=== PATIENT | female | born 1965 | race Caucasian/White ===

== ENCOUNTER → 2017-02-10 | Outpatient (CLI) | payer MEDICAID, BC ==
[2017-02-10 08:29] LABS: Basophils % (A) 1 %; CH 32.5; CHCM 35.5; Eosinophils # (A) 0.1 k/uL (0-0.7); Eosinophils % (A) 2 %; HDW 2.59; HGB 14.6 gm/dL (11.4-16.0); Luc # (Auto) 0.14; Luc % (Auto) 3; Lymphocytes # (A) 1.6 k/uL (1.0-4.8); Lymphocytes % (A) 33 %; MCH 31.8 pg (25.0-35.0); MCHC 34.7 g/dL (31.0-37.0); MCV 91.8 fL (80.0-100.0); Mean Platelet Volume 7.4; Monocytes # (A) 0.4 k/uL (0-1.0); Monocytes % (A) 8 %; Neutrophils # (A) 2.6 k/uL (1.3-7.7); Neutrophils % (A) 53 %; RBC 4.57 m/uL (3.80-5.40); WBC (Perox) 5.18
== END | disposition home or self-care (01) ==
LOC: LABWHC1 06:40
PROVIDERS: ATTEND Nurse Practitioner Family
DX: Z01.419 Encounter for gynecological examination (general) (routine) without abnormal findings (principal); Z12.72 Encounter for screening for malignant neoplasm of vagina; Z13.228 Encounter for screening for other metabolic disorders; Z13.29 Encounter for screening for other suspected endocrine disorder; Z13.0 Encounter for screening for diseases of the blood and blood-forming organs and certain disorders involving the immune mechanism; Z13.220 Encounter for screening for lipoid disorders; Z13.21 Encounter for screening for nutritional disorder
CPT/HCPCS: 36415; 85025

== ENCOUNTER → 2017-02-18 | Outpatient (CLI) | payer MEDICAID, BC ==
--- NOTE | 2017-02-22 09:07 | MM ---
Reason for exam: screening (asymptomatic). Last mammogram was performed 1 year and 1 month ago. History: Patient is nulliparous. Family history of breast cancer in grandmother at age 60. Took hormonal contraceptives for 15 years beginning at age 27. Physical Findings: A clinical breast exam by your physician is recommended on an annual basis and results should be correlated with mammographic findings. MG 3D Screening Mammo W/Cad Bilateral CC and MLO view(s) were taken. Prior study comparison: January 16, 2016, bilateral MG 3d screening mammo w/cad. June 26, 2014, bilateral MG diagnostic mammo w CAD GHISLAINE. December 13, 2012, bilateral digital screening mammo w/CAD. The breast tissue is heterogeneously dense. This may lower the sensitivity of mammography. No significant changes when compared with prior studies. ASSESSMENT: Negative, BI-RAD 1 RECOMMENDATION: Routine screening mammogram of both breasts in 1 year.
== END | disposition home or self-care (01) ==
LOC: RADMAMWWP 13:58
PROVIDERS: ATTEND Family Medicine
DX: Z12.31 Encounter for screening mammogram for malignant neoplasm of breast (principal)
CPT/HCPCS: 77063; G0202

== ENCOUNTER → 2017-05-24 | Outpatient (CLI) | payer MEDICAID, BC ==
--- NOTE | 2017-05-24 11:01 | ECHOS ---
STRESS ECHOCARDIOGRAM DATE OF SERVICE: 05/24/2017 INDICATIONS: Chest pain. MEDICATIONS: BASELINE HEART RATE: 72 BASELINE BLOOD PRESSURE: 129/81 MAXIMUM HEART RATE: 166 MAXIMUM BLOOD PRESSURE: 192/74 85% MPHR: 145 100% MPHR: 170 METS: 11 MAXIMUM STAGE REACHED: IV TOTAL EXERCISE TIME: 10 minutes CLINICAL INFORMATION: Baseline EKG shows sinus rhythm, normal axis, normal intervals, with poor R-wave progression. Patient exercised on Daron protocol for a total of 10 minutes achieving 11 METs, 97% of predicted maximal heart rate without chest pain. At peak exercise, there was [address]-segment depression noted in the inferolateral leads. Baseline echo shows normal left ventricular size, wall motion and systolic function. Post exercise, the peak images are technically suboptimal, but there are no exercise- induced wall motion abnormalities. CONCLUSIONS: 1. Excellent exercise tolerance. 2. Abnormal stress test by EKG criteria. 3. Negative stress echo. MMIRENEL / IJN: [id number] /
== END | disposition home or self-care (01) ==
LOC: RADNMMAIN 09:49
PROVIDERS: ATTEND Internal Medicine Interventional Cardiology
DX: R07.89 Other chest pain (principal)
CPT/HCPCS: 93017; 93350

== ENCOUNTER → 2018-09-29 | Outpatient (CLI) | payer MEDICAID, BC ==
--- NOTE | 2018-09-30 08:48 | MM ---
Reason for exam: screening (asymptomatic). Last mammogram was performed 1 year and 7 months ago. History: Patient is nulliparous. Family history of breast cancer in grandmother at age 60. Took hormonal contraceptives for 15 years beginning at age 27. Physical Findings: A clinical breast exam by your physician is recommended on an annual basis and results should be correlated with mammographic findings. MG 3D Screening Mammo W/Cad Bilateral CC and MLO view(s) were taken. Prior study comparison: February 18, 2017, bilateral MG 3d screening mammo w/cad. January 16, 2016, bilateral MG 3d screening mammo w/cad. The breast tissue is heterogeneously dense. This may lower the sensitivity of mammography. There is no discrete abnormality. No significant changes when compared with prior studies. ASSESSMENT: Negative, BI-RAD 1 RECOMMENDATION: Routine screening mammogram of both breasts in 1 year.
== END | disposition home or self-care (01) ==
LOC: RADMAMWWP 13:58
PROVIDERS: ATTEND Family Medicine
DX: Z12.31 Encounter for screening mammogram for malignant neoplasm of breast (principal)
CPT/HCPCS: 77063; 77067

== ENCOUNTER → 2019-03-29 | Outpatient (CLI) | payer MEDICAID, BC ==
--- NOTE | 2019-03-29 12:58 | XR ---
EXAMINATION TYPE: XR pelvis AP view DATE OF EXAM: 03/29/2019 CLINICAL HISTORY: Pelvic pain into both legs. TECHNIQUE: A single AP view of the pelvis is obtained. COMPARISON: None. FINDINGS: There is no acute fracture/dislocation evident in the pelvis. The hip and sacroiliac join ts appear symmetric and unremarkable. Scattered pelvic phleboliths are present bilaterally. IMPRESSION: As above.
--- NOTE | 2019-03-29 13:17 | XR ---
EXAMINATION TYPE: XR lumbosacral spine min 4V DATE OF EXAM: 03/29/2019 CLINICAL HISTORY: Shooting pain leg into both legs. TECHNIQUE: Frontal, lateral, and dynamic flexion and extension lateral images of the lumbar spine are obtained. COMPARISON: None FINDINGS: There are 5 lumbar type vertebral bodies identified. The lumbar spine shows slight dextro convex scoliotic curvature centered at L3-L4 level. Slight grade 1 anterolisthesis L3 on L4. Vertebra l body heights and disc space heights are fairly well-maintained. Dynamic images show no increased townsend bluxation or new disc space narrowing at any lumbar level. Overlying soft tissues are unremarkable. IMPRESSION: As above.
== END | disposition home or self-care (01) ==
LOC: RADXRMAIN 12:06
PROVIDERS: ATTEND Physician Assistant
DX: M25.551 Pain in right hip (principal); M41.86 Other forms of scoliosis, lumbar region; M43.16 Spondylolisthesis, lumbar region; M54.16 Radiculopathy, lumbar region
CPT/HCPCS: 72110; 72170

== ENCOUNTER → 2019-05-01 | Outpatient (CLI) | payer MEDICAID, BC ==
--- NOTE | 2019-05-01 15:45 | MR ---
EXAMINATION TYPE: MR cspine/lspine wo con DATE OF EXAM: 05/01/2019 COMPARISON: Plain film 03/29/2019 lumbosacral spine HISTORY: Headaches, low back pain into legs TECHNIQUE: Multiplanar, multisequence imaging of the lumbar and cervical spine is performed without I V contrast. FINDINGS: Lumbar spine MRI: Sagittal images of the lumbar spine show vertebral body heights and alignment to ap pear satisfactory, minimal anterolisthesis grade 1 L3-4. The intervertebral discs demonstrate loss of height and signal especially L5-S1, L3-4, increased signal posterior aspect of the disc at L5-S1 lik mariah represents an annular tear. The conus medullaris is normal in position and signal. The bone mar row signal intensity is within normal limits. Some cortical cysts are likely associated with the kidn eys Axial images show small posterior disc herniation L5-S1 possibly contacting the proximal S1 nerve jaime ts, anterior thecal sac, facet arthropathy changes at L3-4 with hypertrophy ligamentum flavum and no other significant abnormalities. There is no spinal canal stenosis, neural foraminal narrowing, or ev idence of nerve root compromise. IMPRESSION: Degenerative disc disease and facet arthropathy. Posterior disc herniation L5-S1. Cervical MRI: Cervical vertebral bodies show preserved height, alignment, and bone marrow signal. Thi s must disc height signal at C3-4, C4-5. Small posterior disc bulge present C2-3 without foraminal en croachment. C3-4 shows broad-based posterior disc bulge causing anterior mass effect on the thecal sa c which is mild. C4-5 also shows minimal posterior disc bulge causing slight anterior mass effect on the thecal sac. Some mild right-sided foraminal encroachment is present due to uncovertebral joint hy pertrophy. C5-C6 shows right-sided foraminal encroachment due to uncovertebral joint hypertrophy. Minimal agri business agent ior disc bulge causes slight anterior mass effect on the thecal sac. C6-7 shows foraminal encroachmen t bilaterally. Minimal posterior disc bulge causes slight anterior mass effect on the thecal sac. The re is no significant spinal stenosis present within the cervical spine. IMPRESSION: Degenerative disc disease and mild level foraminal encroachment.
== END | disposition home or self-care (01) ==
LOC: RADMRIMAIN 14:06
PROVIDERS: ATTEND Psychiatry & Neurology Neurology
DX: M51.27 Other intervertebral disc displacement, lumbosacral region (principal); M51.36 Other intervertebral disc degeneration, lumbar region; M46.96 Unspecified inflammatory spondylopathy, lumbar region; M50.30 Other cervical disc degeneration, unspecified cervical region
CPT/HCPCS: 72141; 72148

== ENCOUNTER → 2020-01-11 | Outpatient (CLI) | payer MEDICAID, BC ==
--- NOTE | 2020-01-11 11:51 | ECHOF ---
Referral Reason:R07.9 chest pain MEASUREMENTS -------- HEIGHT: 165.1 cm WEIGHT: 74.8 kg BP: 127/81 RVIDd: 2.4 cm (< 3.3) IVSd: 1.0 cm (0.6 - 1.1) LVIDd: 4.7 cm (3.9 - 5.3) LVPWd: 0.9 cm (0.6 - 1.1) IVSs: 1.2 cm LVIDs: 3.2 cm LVPWs: 1.3 cm LA Diam: 3.6 cm (2.7 - 3.8) LAESV Index (A-L): 22.84 ml/m Ao Diam: 2.6 cm (2.0 - 3.7) AV Cusp: 1.6 cm (1.5 - 2.6) MV EXCURSION: 19.740 mm (> 18.000) MV EF SLOPE: 129 mm/s (70 - 150) EPSS: 0.8 cm MV E Michele: 0.99 m/s MV DecT: 245 ms MV A Michele: 0.96 m/s MV E/A Ratio: 1.04 FINDINGS -------- Sinus rhythm. This was a technically adequate study. The left ventricular size is normal. Left ventricular wall thickness is normal. Overall left vent ricular systolic function is normal with, an EF between 60 - 65 %. The right ventricle is normal in size. Normal LA size by volume 22+/-6 ml/m2. The right atrium is normal in size. Interatrial and interventricular septum intact. The aortic valve is trileaflet and appears structurally normal. Mild mitral regurgitation is present. Trace tricuspid regurgitation present. There is no pulmonic regurgitation present. The aortic root size is normal. Normal inferior vena cava with normal inspiratory collapse consistent with estimated right atrial pre ssure of 5 mmHg. There is no pericardial effusion. CONCLUSIONS -------- 1. The left ventricular size is normal. 2. Left ventricular wall thickness is normal. 3. Overall left ventricular systolic function is normal with, an EF between 60 - 65 %. 4. Mild mitral regurgitation is present. 5. Trace tricuspid regurgitation present. 6. There is no pericardial effusion. PLUMBING HARDWARE ASSEMBLER: Gin Nuñez RD
--- NOTE | 2020-01-11 15:15 | ECHOS ---
Stress Test Results/Findings: Exam Performed: stress echo exercise with con Exam Date: 01/11/20 Reason for Exam: CHEST PAIN Height: 5 ft 5 in Weight: 74.843 kg Protocol: EXERCISE STRESS ECHO Stage: IV Duration of Exercise: 11:00 Resting Heart Rate: 67 Resting Blood Pressure: 127/81 Maximum Achieved Heart Rate: 159 Maximum Achieved Blood Pressure: 169/57 85% PMHR: 143 100% PMHR: 159 METS: 12.1 Technologist Comment: Stress Test Results/Findings: Patient underwent exercise stress echo with a Draon protocol treadmill stress test. Patient exercised into Stage 4 for a total of 11 minutes reaching a total of 12.1 METS. Patient's maximum heart rate was 159 which represented 100% % age-predicted maximum heart rate. Stress EKG portion: At baseline patient's EKG showed normal sinus rhythm, heart rate of 65, normal axis, nonspecific T-wave flattening in aVL. At peak exercise, EKG showed nonspecific 0.[address] depressions in inferior lateral leads. Stress echo portion: 2-D echocardiogram was performed in the parasternal long, personal short, apical 2 and apical four-chamber views at rest, peak exercise and in recovery. At baseline, echocardiogram showed left ventricular ejection fraction 60 % without wall motion abnormalities. With peak exercise, echocardiogram shows improvement in left ventricular ejection fraction, increase contractility, decrease in left ventricular dimension without wall motion abnormalities consistent with a normal response to exercise. Conclusions: 1. Normal EKG and echo response to exercise without evidence of inducible ischemia. 2. Excellent exercise capacity. [facility]
== END | disposition home or self-care (01) ==
LOC: RADECHMAIN 08:28
PROVIDERS: ATTEND Internal Medicine Interventional Cardiology
DX: I08.1 Rheumatic disorders of both mitral and tricuspid valves (principal)
CPT/HCPCS: 93306; 93351; Q9950

== ENCOUNTER → 2020-04-16 | Outpatient (CLI) | payer MEDICAID, BC ==
[2020-04-16 08:56] LABS: HCT 42.2 % (34.0-46.0); HGB 14.8 gm/dL (11.4-16.0); MCH 31.9 pg (25.0-35.0); MCHC 35.1 g/dL (31.0-37.0); MCV 90.9 fL (80.0-100.0); Mean Platelet Volume 7.4; Platelet Count 270 k/uL (150-450); RBC 4.65 m/uL (3.80-5.40); RDW 12.5 % (11.5-15.5); WBC 6.9 k/uL (3.8-10.6)
[2020-04-16 14:20] LABS: African American GFR (CKD) 114.6 (60.0-200.0); Albumin 4.5 g/dL (3.80-4.90); Albumin/Globulin Ratio 2.14 (1.60-3.17); Anion Gap 6.7 mmol/L (4.00-12.00); BUN/Creat Ratio 25.71 Ratio (12.00-20.00); Calcium 9.4 mg/dL (8.7-10.3); Carbon Dioxide 25.3 mmol/L (21.6-31.8); Chol/HDL Ratio 3.15; Globulin 2.1 g/dL (1.6-3.3); LDL Cholesterol,Calculated 108.8 mg/dL (0.0-131.0); Non-African American GFR(CKD) 98.9 (60.0-200.0); Potassium 4.4 mmol/L (3.5-5.5); Total Bilirubin 1.2 mg/dL (0.2-1.2); Total Protein 6.6 g/dL (6.2-8.2); VLDL Calculation 24.2 mg/dL (5.00-40.00)
[2020-04-16 14:29] LABS: T4, Free (Free Thyroxine) 1.2 ng/dL (0.80-1.80)
== END | disposition home or self-care (01) ==
LOC: LABWHC1 07:27
PROVIDERS: ATTEND Obstetrics & Gynecology
DX: Z13.29 Encounter for screening for other suspected endocrine disorder (principal); Z13.228 Encounter for screening for other metabolic disorders; Z13.220 Encounter for screening for lipoid disorders
CPT/HCPCS: 36415; 80053; 80061; 82306; 84439; 84443; 85027

== ENCOUNTER → 2020-06-26 | Outpatient (CLI) | payer MEDICAID, BC ==
--- NOTE | 2020-06-26 08:55 | BD ---
EXAMINATION TYPE: Axial Bone Density DATE OF EXAM: 06/26/2020 COMPARISON: NONE CLINICAL HISTORY: Height: 65 IN Weight: 165 LBS FRAX RISK QUESTIONS: Family History (Parent hip fracture): YES MOTHER RISK FACTORS HISTORY OF: Active: YES Diet low in dairy products/other sources of calcium: YES If Premenopausal, do you have irregular periods: YES LMP 03/2020 Take estrogen and/or progesterone medications: NOT NOW How long: TOOK CONTROL FOR 15 YEARS MEDICATIONS: Additional Medications: VIT D, MULTI VIT, INDERAL EXAM MEASUREMENTS: Bone mineral densitometry was performed using the [employer] System. Bone mineral density as measured about the Lumbar spine is: ----- L1-L4(G/cm2): 1.448 T Score Values are as follows: ----- L2: 1.4 ----- L3: 3.3 ----- L4: 2.3 ----- L1-L4: 2.2 Bone mineral density BASELINE Bone mineral density about the R hip (g/cm2): 1.050 Bone mineral density about the L hip (g/cm2): 1.119 T Score values are as follows: -----R Neck: 0.1 -----L Neck: 0.6 -----R Total: 1.0 -----L Total: 1.1 Bone mineral density BASELINE IMPRESSION: No evidence for osteoporosis or osteopenia. NOTE: T-SCORE=SD OF THE YOUNG ADULT MEAN.
--- NOTE | 2020-06-27 09:48 | MM ---
Reason for exam: screening (asymptomatic). Last mammogram was performed 1 year and 9 months ago. History: Patient is nulliparous. Family history of breast cancer in grandmother at age 60. Took hormonal contraceptives for 15 years beginning at age 27. Physical Findings: A clinical breast exam by your physician is recommended on an annual basis and results should be correlated with mammographic findings. MG 3D Screening Mammo W/Cad Bilateral CC and MLO view(s) were taken. Prior study comparison: September 29, 2018, bilateral MG 3d screening mammo w/cad. February 18, 2017, bilateral MG 3d screening mammo w/cad. The breast tissue is heterogeneously dense. This may lower the sensitivity of mammography. Focal asymmetry upper outer left breast. This finding is changed when compared with previous exams. ASSESSMENT: Incomplete: need additional imaging evaluation, BI-RAD 0 RECOMMENDATION: Special view mammogram of the left breast. If lesion persists on supplemental views, image directed ultrasound is recommended. [facility] will attempt to contact patient to return for supplemental views and ultrasound if indicated.
== END | disposition home or self-care (01) ==
LOC: RADMAMWWP 07:39
PROVIDERS: ATTEND Obstetrics & Gynecology
DX: Z12.31 Encounter for screening mammogram for malignant neoplasm of breast (principal); N95.1 Menopausal and female climacteric states
CPT/HCPCS: 77063; 77067; 77080

== ENCOUNTER → 2020-07-08 | Outpatient (CLI) | payer MEDICAID, BC ==
--- NOTE | 2020-07-08 14:57 | MM ---
Reason for exam: additional evaluation requested from abnormal screening. Last mammogram was performed less than 1 month ago. History: Patient is nulliparous. Family history of breast cancer in grandmother at age 60. Took hormonal contraceptives for 15 years beginning at age 27. Physical Findings: Nurse did not find any significant physical abnormalities on exam. MG 3D Work Up W/Cad LT Spot compression CC, spot compression MLO, and LM view(s) were taken of the left breast. Prior study comparison: June 26, 2020, bilateral MG 3d screening mammo w/cad. September 29, 2018, bilateral MG 3d screening mammo w/cad. The breast tissue is heterogeneously dense. This may lower the sensitivity of mammography. The upper outer quadrant focal asymmetry does not persist on additional views. No significant new findings when compared with previous films. These results were verbally communicated with the patient and result sheet given to the patient on 07/08/20. ASSESSMENT: Negative, BI-RAD 1 RECOMMENDATION: Return to routine screening mammogram schedule for both breasts.
== END ==
LOC: RADMAMWWP 13:41
PROVIDERS: ATTEND Obstetrics & Gynecology
DX: R92.2 Inconclusive mammogram (principal)
CPT/HCPCS: 77061; 77065

== ENCOUNTER → 2021-03-26 | Outpatient (CLI) | payer MEDICAID, BC ==
[2021-03-27 10:26] LABS: Onion IgE <0.10 kU/L (<0.10); Onion IgE Class CLASS 0; Yeast Bakers/Brew IgE <0.10 kU/L (<0.10); Yeast Bakers/Brew IgE Class CLASS 0
[2021-03-27 10:27] LABS: Apple IgE Class CLASS 0; Chocolate IgE Class CLASS 0; Latex IgE Class CLASS 0
[2021-03-27 10:28] LABS: Avocado Class CLASS 0; Banana IgE Class CLASS 0; Cow's Milk IgE Class CLASS 0; Egg White IgE <0.10 kU/L (<0.10); Hazelnut IgE <0.10 kU/L (<0.10); Hazelnut IgE Class CLASS 0; Kiwi IgE <0.10 kU/L (<0.10); Kiwi IgE Class CLASS 0; Peanut IgE <0.10 kU/L (<0.10); Potato IgE <0.10 kU/L (<0.10); Potato IgE Class CLASS 0; Soybean IgE <0.10 kU/L (<0.10)
[2021-03-27 10:29] LABS: Coffee IgE <0.10 kU/L (<0.10); Coffee IgE Class CLASS 0; Tea IgE <0.10 kU/L (<0.10); Tea IgE Class CLASS 0
== END | disposition home or self-care (01) ==
LOC: LABWHC1 08:51
PROVIDERS: ATTEND Otolaryngology
DX: J30.1 Allergic rhinitis due to pollen (principal)
CPT/HCPCS: 36415; 86003

== ENCOUNTER → 2022-01-26 | Outpatient (CLI) | payer MEDICAID, BC | END | disposition home or self-care (01) | LOC: LABWHC1 07:01 | PROVIDERS: ATTEND Nurse Practitioner Family | DX: R07.89 Other chest pain (principal) | CPT/HCPCS: 36415; 93005 ==

== ENCOUNTER → 2022-08-12 | Outpatient (CLI) | payer MEDICAID, BC ==
[2022-08-12 08:13] LABS: Basophils % (A) 1 %; Eosinophils # (A) 0.2 k/uL (0-0.7); Eosinophils % (A) 3 %; HCT 43.1 % (34.0-46.0); HGB 15.1 gm/dL (11.4-16.0); Lymphocytes # (A) 1.6 k/uL (1.0-4.8); Lymphocytes % (A) 32 %; MCH 31.1 pg (25.0-35.0); MCHC 34.9 g/dL (31.0-37.0); Mean Platelet Volume 7.6; Monocytes # (A) 0.5 k/uL (0-1.0); Monocytes % (A) 9 %; Neutrophils # (A) 2.6 k/uL (1.3-7.7); Neutrophils % (A) 53 %; Platelet Count 240 k/uL (150-450); RBC 4.84 m/uL (3.80-5.40); RDW 12.7 % (11.5-15.5)
[2022-08-12 08:34] LABS: ALT 55 U/L (4-34); AST 35 U/L (14-36); African American GFR (CKD) >90 (>60 ml/min/1.73 sqM); Albumin 4.7 g/dL (3.5-5.0); Albumin/Globulin Ratio 1.6; Alkaline Phosphatase 90 U/L (38-126); Anion Gap 10 mmol/L; Blood Urea Nitrogen 22 mg/dL (7-17); Calcium 9.3 mg/dL (8.4-10.2); Carbon Dioxide 26 mmol/L (22-30); Chloride 105 mmol/L (98-107); Globulin 2.9 g/dL; Glucose 133 mg/dL (74-99); Non-African American GFR(CKD) >90 (>60 ml/min/1.73 sqM); Potassium 4.5 mmol/L (3.5-5.1); Sodium 141 mmol/L (137-145); Total Bilirubin 1.4 mg/dL (0.2-1.3); Total Protein 7.6 g/dL (6.3-8.2); Uric Acid 4.6 mg/dL (3.7-7.4)
[2022-08-12 12:54] LABS: C Reactive Protein <0.5 mg/dL (<1.0)
[2022-08-12 15:14] LABS: Erythrocyte Sedimentation Rate 8 mm/hr (0-20)
[2022-08-12 21:03] LABS: Chol/HDL Ratio 2.29 Ratio; LDL Cholesterol,Calculated 67.6 mg/dL (0.0-131.0); Rheumatoid Factor, Qnt <10 IU/mL (0-15)
== END | disposition home or self-care (01) ==
LOC: LABWHC1 06:59
PROVIDERS: ATTEND Family Medicine
DX: M25.50 Pain in unspecified joint (principal); M79.18 Myalgia, other site; E78.2 Mixed hyperlipidemia; R42 Dizziness and giddiness; R55 Syncope and collapse; R00.2 Palpitations
CPT/HCPCS: 36415; 80053; 80061; 82306; 84443; 84550; 85025; 85652; 86038; 86140; 86431

== ENCOUNTER → 2022-08-18 | Outpatient (CLI) | payer MEDICAID, BC ==
--- NOTE | 2022-09-21 22:44 | EM ---
EVENT MONITOR STUDY PERFORMED: Thirty-day event monitor. FINDINGS: Multiple rhythm strips were reviewed. Almost all the available rhythm strips appear to be sinus or sinus bradycardia. There is no evidence of any other significant tachy or bradyarrhythmia. The patient had a rhythm when she was walking on a treadmill. This revealed sinus tachycardia with baseline artifact. FINAL IMPRESSION: Rhythm strips suggest sinus rhythm with some premature atrial contractions and some sinus bradycardia and sinus tachycardia. No significant arrhythmia is noted. MMODL / IJN: [id number] /
== END | disposition home or self-care (01) ==
LOC: RADECHMAIN 12:19
PROVIDERS: ATTEND Family Medicine
DX: R00.0 Tachycardia, unspecified (principal); R00.1 Bradycardia, unspecified; R42 Dizziness and giddiness
CPT/HCPCS: 93270

== ENCOUNTER 2022-12-06 18:42 | Emergency (ER) | payer MEDICAID, BC ==
[2022-12-06 18:59] VITALS: RESP 18; TEMP 98
[2022-12-06] MEDS ORDERED: SODIUM CHLORIDE 0.9% 1,000 ML IV ONE (19:27)
[2022-12-06] MEDS ORDERED: KETOROLAC 15 MG/ML 1 ML VIAL IVP STA (19:27)
[2022-12-06] MEDS ORDERED: ONDANSETRON 4 MG/2 ML VIAL IVP STA (19:27)
--- NOTE | 2022-12-06 19:35 | ED ---
Female Urogenital HPI - General Chief complaint: Urogenital Stated complaint: side pain Time Seen by Provider: 12/06/22 19:22 Source: patient Mode of arrival: ambulatory Limitations: no limitations - History of Present Illness Initial comments: 57-year-old female presenting with chief complaint of left-sided lower back pain ongoing for 2 days. Patient admits to nausea, diarrhea, and urinary frequency. Patient initially attributed her urinary frequency and diarrhea to recent antibiotic use for sinusitis and stopped taking her Augmentin. She has no history of kidney stones. Denies dysuria or hematuria. No hematochezia or melena. No vomiting. No chest pain or difficulty breathing. She does have some mild discomfort suprapubically. No fevers or chills. - Related Data Previous Rx's Medication Instructions Recorded Ketorolac [Toradol] 10 mg PO Q6HR PRN #12 tab 12/06/22 Ondansetron Odt [Zofran Odt] 4 mg PO Q8HR PRN #20 tab 12/06/22 Tamsulosin [Flomax] 0.4 mg PO DAILY #10 cap 12/06/22 Allergies Allergy/AdvReac Type Severity Reaction Status Date / Time No Known Allergies Allergy Verified 12/06/22 18:59 Review of Systems ROS Statement: Those systems with pertinent positive or pertinent negative responses have been documented in the HPI. ROS Other: All systems not noted in ROS Statement are negative. Past Medical History Past Medical History: No Reported History History of Any Multi-Drug Resistant Organisms: None Reported Past Surgical History: No Surgical Hx Reported Past Psychological History: No Psychological Hx Reported Smoking Status: Never smoker Past Alcohol Use History: Occasional Past Drug Use History: None Reported General Exam Limitations: no limitations General appearance: alert, in no apparent distress Head exam: Present: atraumatic, normocephalic, normal inspection Eye exam: Present: normal appearance, EOMI Neck exam: Present: normal inspection, full ROM Respiratory exam: Present: normal lung sounds bilaterally. Absent: respiratory distress, wheezes, rales, rhonchi, stridor Cardiovascular Exam: Present: regular rate, normal rhythm, normal heart sounds. Absent: systolic murmur, diastolic murmur, rubs, gallop, clicks GI/Abdominal exam: Present: soft. Absent: distended, tenderness, guarding, rebound, rigid Back exam: Present: normal inspection Neurological exam: Present: alert, oriented X3, CN II-XII intact Psychiatric exam: Present: normal affect, normal mood Skin exam: Present: warm, dry, intact, normal color. Absent: rash Course Vital Signs 12/06/22 12/06/22 18:53 22:13 Temperature 98.0 F Pulse Rate 79 85 Respiratory 18 18 Rate Blood Pressure 149/81 115/70 O2 Sat by Pulse 96 95 Oximetry Medical Decision Making - Medical Decision Making Was pt. sent in by a medical professional or institution (, PA, PERFORMING ARTIST, urgent care, hospital, or assisted...) When possible be specific @ -No Did you speak to anyone other than the patient for history (EMS, parent, family, police, friend...)? What history was obtained from this source @ -No Did you review nursing and triage notes (agree or disagree)? Why? @ -I reviewed and agree with nursing and triage notes Were old charts reviewed (outside hosp., previous admission, EMS record, old EKG, old radiological studies, urgent care reports/EKG's, assisted records)? Report findings @ -No old charts were reviewed Differential Diagnosis (chest pain, altered mental status, abdominal pain women, abdominal pain men, vaginal bleeding, weakness, fever, dyspnea, syncope, headache, dizziness, GI bleed, back pain, seizure, CVA, palpatations, mental health, musculoskeletal)? @ - MDM Differential Back Pain: Strain, zoster, cauda equina syndrome, epidural abscess, vertebral osteomyelitis, discitis, fracture, subluxation, disc herniation, DJD, spinal stenosis, dissection, AAA, pancreatitis, peptic ulcer disease, pyelonephritis, kidney stone this is not meant to be an all-inclusive list. EKG interpreted by me (3pts min.). @ -As above X-rays interpreted by me (1pt min.). @ -None done CT interpreted by me (1pt min.). @ -CT shows mild left hydroureter nephrosis with a 3 mm obstructing calculus at the left UVJ. Bilateral nonobstructing renal calculi. Hepatic steatosis. U/S interpreted by me (1pt. min.). @ -None done What testing was considered but not performed or refused? (CT, X-rays, U/S, labs)? Why? @ -None What meds were considered but not given or refused? Why? @ -None Did you discuss the management of the patient with other professionals (professionals i.e. , PA, PERFORMING ARTIST, lab, RT, psych nurse, social contact worker, rotary rock drilling machine operator, teacher, safety patrol officer, case folder)? Give summary @ -No Was smoking cessation discussed for >3mins.? @ -No Was critical care preformed (if so, how long)? @ -No Were there social determinants of health that impacted care today? How? (Homelessness, low income, unemployed, alcoholism, drug addiction, transportation, low edu. Level, literacy, decrease access to med. care, nursing home, rehab)? @ -No Was there de-escalation of care discussed even if they declined (Discuss DNR or withdrawal of care, Hospice)? DNR status @ -No What co-morbidities impacted this encounter? (DM, HTN, Smoking, COPD, CAD, Cancer, CVA, ARF, Chemo, Hep., AIDS, mental health diagnosis, sleep apnea, morbid obesity)? @ -None Was patient admitted / discharged? Hospital course, mention meds given and route, prescriptions, significant lab abnormalities, going to OR and other pertinent info. @ -57-year-old female presenting with chief complaint of left-sided flank pain. Physical examination is conducted. Lab work shows no leukocytosis or anemia. Urine shows [address] shows 3 mm stone at the UVJ. Patient is educated on today's findings. After Toradol she reports resolution of her pain. She is discharged home with Toradol, Zofran, and Flomax. Follow-up with PCP. Report back to ER with any new or worsening symptoms. Discussed return parameters and answered all questions. Patient conveyed verbal understanding and agreed to the plan. I discussed this case in detail with my attending Dr. Lopez Undiagnosed new problem with uncertain prognosis? @ -No Drug Therapy requiring intensive monitoring for toxicity (Heparin, Nitro, Insulin, Cardizem)? @ -No Were any procedures done? @ -No Diagnosis/symptom? @ -Kidney stone Acute, or Chronic, or Acute on Chronic? @ -Acute Uncomplicated (without systemic symptoms) or Complicated (systemic symptoms)? @ -Uncomplicated Side effects of treatment? @ -No Exacerbation, Progression, or Severe Exacerbation? @ -No Poses a threat to life or bodily function? How? (Chest pain, USA, NC, pneumonia, PE, COPD, DKA, ARF, appy, cholecystitis, CVA, Diverticulitis, Homicidal, Suicidal, threat to staff... and all critical care pts) @ -No - Lab Data Result diagrams: 12/06/22 20:09 12/06/22 20:09 Lab Results 12/06/22 12/06/22 12/06/22 Range/Units 19:54 20:09 20:09 WBC 8.8 (3.8-10.6) k/uL RBC 4.89 (3.80-5.40) m/uL Hgb 14.9 (11.4-16.0) gm/dL Hct 42.8 (34.0-46.0) % MCV 87.4 (80.0-100.0) fL MCH 30.5 (25.0-35.0) pg MCHC 34.9 (31.0-37.0) g/dL RDW 12.7 (11.5-15.5) % Plt Count 298 (150-450) k/uL MPV 7.5 Neutrophils % 66 % Lymphocytes % 23 % Monocytes % 6 % Eosinophils % 3 % Basophils % 1 % Neutrophils # 5.8 (1.3-7.7) k/uL Lymphocytes # 2.1 (1.0-4.8) k/uL Monocytes # 0.6 (0-1.0) k/uL Eosinophils # 0.3 (0-0.7) k/uL Basophils # 0.1 (0-0.2) k/uL Sodium 139 (137-145) mmol/L Potassium 4.1 (3.5-5.1) mmol/L Chloride 103 (98-107) mmol/L Carbon Dioxide 24 (22-30) mmol/L Anion Gap 12 mmol/L BUN 22 H (7-17) mg/dL Creatinine 0.69 (0.52-1.04) mg/dL Est GFR (CKD-EPI)AfAm >90 (>60 ml/min/1.73 sqM) Est GFR (CKD-EPI)NonAf >90 (>60 ml/min/1.73 sqM) Glucose 201 H (74-99) mg/dL Calcium 9.2 (8.4-10.2) mg/dL Total Bilirubin 1.0 (0.2-1.3) mg/dL AST 34 (14-36) U/L ALT 54 H (4-34) U/L Alkaline Phosphatase 104 (38-126) U/L Total Protein 7.5 (6.3-8.2) g/dL Albumin 4.4 (3.5-5.0) g/dL Urine Color Yellow Urine Appearance Clear (Clear) Urine pH 5.5 (5.0-8.0) Ur Specific [place] >1.030 (1.001-1.035) Urine Protein Negative (Negative) Urine Glucose (UA) Negative (Negative) Urine Ketones Negative (Negative) Urine Blood Moderate (Negative) Urine Nitrite Negative (Negative) Urine Bilirubin Negative (Negative) Urine Urobilinogen <2.0 (<2.0) mg/dL Ur Leukocyte Esterase Negative (Negative) Urine RBC 26 H (0-5) /hpf Urine WBC 0 (0-5) /hpf Calcium Oxalate Crystal Many H (None) /hpf Urine Bacteria 0 (None) /hpf Disposition Clinical Impression: Kidney stone Disposition: HOME SELF-CARE Condition: Good Instructions (If sedation given, give patient instructions): Kidney Stones (ED) Additional Instructions: Follow-up with PCP. Report back to ER with any new or worsening symptoms. Take medication as prescribed. Prescriptions: Tamsulosin [Flomax] 0.4 mg PO DAILY #10 cap Ketorolac [Toradol] 10 mg PO Q6HR PRN #12 tab PRN Reason: Pain Ondansetron Odt [Zofran Odt] 4 mg PO Q8HR PRN #20 tab PRN Reason: Nausea Is patient prescribed a controlled substance at d/c from ED?: No Referrals: Aleida Hansen III, MD [Primary Care Provider] - 1-2 days Time of Disposition: 21:52
[2022-12-06 20:10] LABS: Appearance,Urine Clear (Clear); Color,Urine Yellow
[2022-12-06 20:11] LABS: Bilirubin,Urine Negative (Negative); Blood,Urine Moderate (Negative); Glucose,Urine (UA) Negative (Negative); Ketones,Urine Negative (Negative); Leukocyte Esterase,Urine Negative (Negative); Nitrite,Urine Negative (Negative); PH, Urine 5.5 (5.0-8.0); Protein,Urine Negative (Negative); Specific Gravity,Urine >1.030 (1.001-1.035); Urobilinogen,Urine <2.0 mg/dL (<2.0)
[2022-12-06 20:17] LABS: Calcium Oxalate Crystals,Urine Many /hpf; RBC,Urine 26 /hpf (0-5); WBC,Urine 0 /hpf (0-5)
[2022-12-06 20:18] LABS: Bacteria,Urine 0 /hpf
[2022-12-06 20:26] LABS: Basophils # (A) 0.1 k/uL (0-0.2); Basophils % (A) 1 %; Eosinophils # (A) 0.3 k/uL (0-0.7); Eosinophils % (A) 3 %; HCT 42.8 % (34.0-46.0); HGB 14.9 gm/dL (11.4-16.0); Lymphocytes # (A) 2.1 k/uL (1.0-4.8); Lymphocytes % (A) 23 %; MCH 30.5 pg (25.0-35.0); MCHC 34.9 g/dL (31.0-37.0); MCV 87.4 fL (80.0-100.0); Mean Platelet Volume 7.5; Monocytes # (A) 0.6 k/uL (0-1.0); Monocytes % (A) 6 %; Neutrophils # (A) 5.8 k/uL (1.3-7.7); Neutrophils % (A) 66 %; Platelet Count 298 k/uL (150-450); RBC 4.89 m/uL (3.80-5.40); RDW 12.7 % (11.5-15.5); WBC 8.8 k/uL (3.8-10.6)
--- NOTE | 2022-12-06 20:40 | CT ---
EXAMINATION TYPE: CT abdomen pelvis wo con CT DLP: 604.8 mGycm, Automated exposure control for dose reduction was used. DATE OF EXAM: 12/06/2022 8:23 PM COMPARISON: None CLINICAL INDICATION:Female, 57 years old with history of L flank pain; L flank pain TECHNIQUE: Renal stone protocol CT of the abdomen and pelvis without IV or oral contrast. Lack of IV or oral contrast limits evaluation of solid and hollow organ viscera. Coronal and sagittal reformats were performed. FINDINGS: LOWER CHEST: Posterior dependent subsegmental atelectasis is noted. ABDOMEN LIVER: Diffusely hypoattenuating parenchyma. GALLBLADDER AND BILE DUCTS: Contracted gallbladder. PANCREAS: Unremarkable noncontrast appearance SPLEEN: Unremarkable noncontrast appearance ADRENAL GLANDS: Unremarkable noncontrast appearance. KIDNEYS AND URETERS: Nonobstructive right inferior pole calculus measuring up to 3 mm. Additional non obstructive left renal calculi. No hydronephrosis on the right kidney. Mild left hydroureteronephrosi s with mild perirenal fat stranding. There is an obstructing urinary calculus at the left ureteral ve sicle junction. PELVIS BLADDER: Under distended, limiting evaluation. REPRODUCTIVE: Unremarkable noncontrast appearance ABDOMEN & PELVIS STOMACH AND BOWEL: Stomach and duodenum are unremarkable. No focal bowel wall thickening or surroundi ng inflammatory changes. The appendix is within normal limits. No evidence of bowel obstruction. PERITONEUM: No evidence of pneumoperitoneum or free fluid. VASCULATURE: No evidence of aortic aneurysm. Few pelvic phleboliths. MUSCULOSKELETAL: No acute osseous abnormalities LYMPH NODES: No gross evidence for lymphadenopathy. SOFT TISSUE/ABDOMINAL WALL: Tiny fat filled umbilical hernia. IMPRESSION: 1. Mild left hydroureteronephrosis with a 3 mm obstructing calculus at the left ureterovesical junct ion. 2. Bilateral nonobstructing renal calculi. 3. Hepatic steatosis.
[2022-12-06 20:53] LABS: ALT 54 U/L (4-34); AST 34 U/L (14-36); African American GFR (CKD) >90 (>60 ml/min/1.73 sqM); Albumin 4.4 g/dL (3.5-5.0); Alkaline Phosphatase 104 U/L (38-126); Anion Gap 12 mmol/L; Blood Urea Nitrogen 22 mg/dL (7-17); Calcium 9.2 mg/dL (8.4-10.2); Carbon Dioxide 24 mmol/L (22-30); Chloride 103 mmol/L (98-107); Glucose 201 mg/dL (74-99); Non-African American GFR(CKD) >90 (>60 ml/min/1.73 sqM); Potassium 4.1 mmol/L (3.5-5.1); Sodium 139 mmol/L (137-145); Total Protein 7.5 g/dL (6.3-8.2)
[2022-12-06 22:15] VITALS: BP 115/70; PULSE 85
== END 2022-12-06 22:15 | disposition home or self-care (01) ==
LOC: EC 18:42
DX: R10.9 Unspecified abdominal pain (principal); N13.2 Hydronephrosis with renal and ureteral calculous obstruction; K76.0 Fatty (change of) liver, not elsewhere classified
CPT/HCPCS: 36415; 80053; 85025; 81001; 74176; 99284; 96374; 96375; 96361; J2405; J1885

== ENCOUNTER → 2023-04-14 | Outpatient (CLI) | payer MEDICAID, BC ==
[2023-04-14 16:07] LABS: Albumin 4.8 g/dL (3.8-4.9); Albumin/Globulin Ratio 1.85 Ratio (1.60-3.17); Bilirubin, Conjugated 0.27 mg/dL (0.20-0.40); Bilirubin,Unconjugated 0.73 mg/dL (0.20-1.00); Globulin 2.6 g/dL (1.6-3.3); Total Protein 7.4 g/dL (6.2-8.2)
== END | disposition home or self-care (01) ==
LOC: LABWHC1 07:16
PROVIDERS: ATTEND Family Medicine
DX: E66.3 Overweight (principal); R73.9 Hyperglycemia, unspecified; R74.01 Elevation of levels of liver transaminase levels
CPT/HCPCS: 36415; 80076; 82306; 82977; 83036; 84443

== ENCOUNTER → 2023-04-21 | Outpatient (CLI) | payer MEDICAID, BC ==
[2023-04-21 11:13] LABS: Albumin 4.6 g/dL (3.8-4.9); Albumin/Globulin Ratio 1.7 Ratio (1.60-3.17); Bilirubin, Conjugated 0.3 mg/dL (0.20-0.40); Bilirubin,Unconjugated 1.1 mg/dL (0.20-1.00); Globulin 2.7 g/dL (1.6-3.3); Total Bilirubin 1.4 mg/dL (0.3-1.2); Total Protein 7.3 g/dL (6.2-8.2)
[2023-04-21 11:23] LABS: Hepatitis A Antibody IgM Nonreactive; Hepatitis B Core IgM Nonreactive; Hepatitis B Surface Antigen Nonreactive; Hepatitis C IgG Antibody Nonreactive
== END | disposition home or self-care (01) ==
LOC: LABWHC1 07:00
PROVIDERS: ATTEND Family Medicine
DX: R74.01 Elevation of levels of liver transaminase levels (principal)
CPT/HCPCS: 36415; 80074; 80076; 82977

== ENCOUNTER → 2023-04-22 | Outpatient (CLI) | payer MEDICAID, BC ==
[2023-04-22 11:09] LABS: Basophils # (A) 0.05 X 10*3/uL (0.00-0.10); Basophils % (A) 0.6 %; Eosinophils # (A) 0.19 X 10*3/uL (0.04-0.35); Eosinophils % (A) 2.2 %; HCT 41.7 % (37.2-46.3); HGB 14.4 g/dL (12.0-15.0); Lymphocytes # (A) 1.93 X 10*3/uL (0.90-5.00); Lymphocytes % (A) 22.3 %; MCH 30.4 pg (27.0-32.0); MCHC 34.5 g/dL (32.0-37.0); Mean Platelet Volume 9.6 FL (9.5-12.2); Monocytes # (A) 0.91 X 10*3/uL (0.20-1.00); Monocytes % (A) 10.5 %; NRBC Per 100 WBC 0 X 10*3/uL (0.00-0.01); Neutrophils # (A) 5.53 X 10*3/uL (1.80-7.70); Neutrophils % (A) 64.1 %; Platelet Count 286 X 10*3/uL (140-440); RBC 4.74 X 10*6/uL (4.10-5.20); RDW 12.4 % (11.5-14.5); WBC 8.64 X 10*3/uL (4.50-10.00)
[2023-04-22 11:43] LABS: ALT 53 U/L (8-44); AST 24 U/L (13-35); Albumin 4.4 g/dL (3.8-4.9); Albumin/Globulin Ratio 1.83 Ratio (1.60-3.17); Alkaline Phosphatase 124 U/L (41-126); BUN/Creat Ratio 23.86 Ratio (12.00-20.00); Blood Urea Nitrogen 16.7 mg/dL (9.0-27.0); Calcium 9.5 mg/dL (8.7-10.3); Carbon Dioxide 23.8 mmol/L (21.6-31.8); Chloride 102 mmol/L (96-109); Chol/HDL Ratio 3.04 Ratio; Globulin 2.4 g/dL (1.6-3.3); Glucose 142 mg/dL (70-110); LDL Cholesterol,Calculated 101.5 mg/dL (0.0-131.0); Potassium 4.4 mmol/L (3.5-5.5); Sodium 138 mmol/L (135-145); Total Bilirubin 1.2 mg/dL (0.3-1.2); Total Protein 6.8 g/dL (6.2-8.2); VLDL Calculation 19.86 mg/dL (5.00-40.00)
== END | disposition home or self-care (01) ==
LOC: LABWHC1 07:03
PROVIDERS: ATTEND Family Medicine
DX: E11.9 Type 2 diabetes mellitus without complications (principal)
CPT/HCPCS: 36415; 80053; 80061; 82306; 84443; 85025

== ENCOUNTER → 2023-04-27 | Outpatient (CLI) | payer MEDICAID, BC ==
--- NOTE | 2023-05-03 21:47 | XR ---
EXAMINATION TYPE: XR chest 2V DATE OF EXAM: 04/27/2023 2:49 PM CLINICAL INDICATION:Female, 58 years old with history of R05.9 Cough; [facility] COMPARISON: None TECHNIQUE: XR chest 2V. Frontal PA and lateral views of the chest. FINDINGS: Lines/Tubes: None. Heart/mediastinum: Cardiomediastinal silhouette is well defined. Heart size is normal. Mediastinum appears normal. Pulmonary vascularity: Not increased, Lungs/Pleura: There is no evidence of pleural effusion, focal consolidation, or pneumothorax. Musculoskeletal: No acute osseous abnormality demonstrated in the limits of the exam. Mild degenerat stephanie changes. Other findings: None. IMPRESSION: No acute cardiopulmonary abnormality.
== END | disposition home or self-care (01) ==
LOC: RADXRMAIN 14:35
PROVIDERS: ATTEND Family Medicine
DX: R05.9 Cough, unspecified (principal)
CPT/HCPCS: 71046

== ENCOUNTER → 2023-05-12 | Outpatient (CLI) | payer MEDICAID, BC ==
[2023-05-12 23:12] LABS: Total Bilirubin 0.7 mg/dL (0.3-1.2)
== END | disposition home or self-care (01) ==
LOC: LABWHC1 11:24
PROVIDERS: ATTEND Family Medicine
DX: R74.01 Elevation of levels of liver transaminase levels (principal)
CPT/HCPCS: 36415; 82247; 82977; 84075; 84460

== ENCOUNTER → 2023-05-21 | Outpatient (CLI) | payer MEDICAID, BC ==
[2023-05-21 21:40] LABS: Hepatitis A Antibody IgM Nonreactive; Hepatitis B Core IgM Nonreactive; Hepatitis B Surface Antigen Nonreactive; Hepatitis C IgG Antibody Nonreactive
== END | disposition home or self-care (01) ==
LOC: LABWHC1 12:59
PROVIDERS: ATTEND Family Medicine
DX: R94.5 Abnormal results of liver function studies (principal)
CPT/HCPCS: 36415; 80074; 82977

== ENCOUNTER → 2023-05-21 | Outpatient (CLI) | payer MEDICAID, BC ==
--- NOTE | 2023-05-21 13:14 | US ---
EXAMINATION TYPE: US liver DATE OF EXAM: 05/21/2023 COMPARISON: NONE CLINICAL INDICATION: Female, 58 years old with history of R74.01 ELEVATION OF LEVELS OF LIVER TRANSAM INASE L; elevated labs, no symptoms TECHNIQUE: Multiple sonographic images of the right upper quadrant are obtained. FINDINGS: EXAM MEASUREMENTS: Liver Length: 16.8 cm Gallbladder Wall: 0.2 cm CBD: 0.5 cm Right Kidney: 9.5 x 4.4 x 4.6 cm Pancreas: portions seen appear wnl Liver: difficult to penetrate due to bowel gas, intercostal imaging performed Gallbladder: wnl Evidence for sonographic Fields's sign: no CBD: wnl Right Kidney: wnl IMPRESSION: 1. Hepatomegaly with mild fatty infiltration.
== END | disposition home or self-care (01) ==
LOC: RADUSWWP 06:52
PROVIDERS: ATTEND Family Medicine
DX: K76.0 Fatty (change of) liver, not elsewhere classified (principal); R74.01 Elevation of levels of liver transaminase levels; R16.0 Hepatomegaly, not elsewhere classified
CPT/HCPCS: 76705

== ENCOUNTER → 2023-07-21 | Outpatient (CLI) | payer MEDICAID, BC ==
[2023-07-21 16:50] LABS: Basophils # (A) 0.03 X 10*3/uL (0.00-0.10); Basophils % (A) 0.8 %; Eosinophils # (A) 0.08 X 10*3/uL (0.04-0.35); HCT 42.1 % (37.2-46.3); HGB 14.6 g/dL (12.0-15.0); Lymphocytes # (A) 2.08 X 10*3/uL (0.90-5.00); Lymphocytes % (A) 52.9 %; MCHC 34.7 g/dL (32.0-37.0); MCV 86.6 FL (80.0-97.0); Mean Platelet Volume 10.3 FL (9.5-12.2); Monocytes # (A) 0.51 X 10*3/uL (0.20-1.00); NRBC Per 100 WBC 0 X 10*3/uL (0.00-0.01); Neutrophils # (A) 1.22 X 10*3/uL (1.80-7.70); Platelet Count 218 X 10*3/uL (140-440); RBC 4.86 X 10*6/uL (4.10-5.20); RDW 12.3 % (11.5-14.5); WBC 3.93 X 10*3/uL (4.50-10.00)
[2023-07-21 17:03] LABS: Ceruloplasmin 29.2 mg/dL (20.0-60.0)
[2023-07-21 18:26] LABS: ALT 122 U/L (8-44); AST 49 U/L (13-35); Albumin 4.6 g/dL (3.8-4.9); Albumin/Globulin Ratio 1.77 Ratio (1.60-3.17); Alkaline Phosphatase 141 U/L (41-126); BUN/Creat Ratio 35.57 Ratio (12.00-20.00); Blood Urea Nitrogen 24.9 mg/dL (9.0-27.0); Calcium 9.6 mg/dL (8.7-10.3); Carbon Dioxide 25.3 mmol/L (21.6-31.8); Chloride 104 mmol/L (96-109); Globulin 2.6 g/dL (1.6-3.3); Glucose 110 mg/dL (70-110); Iron 69 UG/DL (50-170); Potassium 4.1 mmol/L (3.5-5.5); Sodium 142 mmol/L (135-145); Total Bilirubin 0.8 mg/dL (0.3-1.2); Total Iron Binding Capacity 365 UG/DL (228-460); Total Protein 7.2 g/dL (6.2-8.2)
[2023-07-22 12:32] LABS: Smooth Muscle Antibody 5 UNITS (<20)
[2023-07-22 18:42] LABS: Albumin 4.49 g/dL (3.80-4.90); Gamma Globulin 1.05 g/dL (0.70-1.50); Protein, Total 7.5 g/dL (5.7-8.2)
== END | disposition home or self-care (01) ==
LOC: LABWHC1 14:02
PROVIDERS: ATTEND Internal Medicine Gastroenterology
DX: R74.8 Abnormal levels of other serum enzymes (principal)
CPT/HCPCS: 36415; 80053; 81596; 82103; 82390; 82728; 83516; 83540; 83550; 84165; 85025; 86038

== ENCOUNTER → 2023-09-24 | Outpatient (CLI) | payer MEDICAID, BC ==
[2023-09-24 10:20] LABS: Basophils # (A) 0.07 X 10*3/uL (0.00-0.10); Basophils % (A) 1.5 %; Eosinophils # (A) 0.11 X 10*3/uL (0.04-0.35); Eosinophils % (A) 2.4 %; HCT 44.8 % (37.2-46.3); HGB 15.3 g/dL (12.0-15.0); Lymphocytes # (A) 1.74 X 10*3/uL (0.90-5.00); Lymphocytes % (A) 37.9 %; MCH 30.5 pg (27.0-32.0); MCHC 34.2 g/dL (32.0-37.0); MCV 89.2 FL (80.0-97.0); Mean Platelet Volume 10.3 FL (9.5-12.2); Monocytes # (A) 0.43 X 10*3/uL (0.20-1.00); Monocytes % (A) 9.4 %; NRBC Per 100 WBC 0 X 10*3/uL (0.00-0.01); Neutrophils # (A) 2.23 X 10*3/uL (1.80-7.70); Neutrophils % (A) 48.6 %; Platelet Count 212 X 10*3/uL (140-440); RBC 5.02 X 10*6/uL (4.10-5.20); RDW 12.5 % (11.5-14.5); WBC 4.59 X 10*3/uL (4.50-10.00)
[2023-09-24 10:45] LABS: Microalbumin Creatinine Ratio <11 mg/g Cr (0-30)
[2023-09-24 10:51] LABS: ALT 57 U/L (8-44); AST 32 U/L (13-35); Albumin 4.8 g/dL (3.8-4.9); Albumin/Globulin Ratio 1.85 Ratio (1.60-3.17); Alkaline Phosphatase 97 U/L (41-126); BUN/Creat Ratio 32.14 Ratio (12.00-20.00); Blood Urea Nitrogen 22.5 mg/dL (9.0-27.0); Calcium 9.5 mg/dL (8.7-10.3); Carbon Dioxide 25.1 mmol/L (21.6-31.8); Chloride 105 mmol/L (96-109); Chol/HDL Ratio 2.45 Ratio; GGT 162 U/L (0-38); Globulin 2.6 g/dL (1.6-3.3); Glucose 127 mg/dL (70-110); LDL Cholesterol,Calculated 93.5 mg/dL (0.0-131.0); Potassium 4.4 mmol/L (3.5-5.5); Sodium 141 mmol/L (135-145); Total Bilirubin 1.2 mg/dL (0.3-1.2); Total Protein 7.4 g/dL (6.2-8.2); VLDL Calculation 14.78 mg/dL (5.00-40.00)
== END | disposition home or self-care (01) ==
LOC: LABWHC1 06:58
PROVIDERS: ATTEND Family Medicine
DX: E11.65 Type 2 diabetes mellitus with hyperglycemia (principal); E78.5 Hyperlipidemia, unspecified; R03.0 Elevated blood-pressure reading, without diagnosis of hypertension; R94.5 Abnormal results of liver function studies
CPT/HCPCS: 36415; 80053; 80061; 82043; 82570; 82977; 83036; 85025

== ENCOUNTER → 2023-09-28 | Outpatient (CLI) | payer MEDICAID, BC ==
[2023-09-28 15:48] LABS: Basophils # (A) 0.06 X 10*3/uL (0.00-0.10); Basophils % (A) 1.1 %; Eosinophils % (A) 1.9 %; HCT 42.4 % (37.2-46.3); HGB 14.7 g/dL (12.0-15.0); Lymphocytes # (A) 1.56 X 10*3/uL (0.90-5.00); Lymphocytes % (A) 29.2 %; MCH 30.7 pg (27.0-32.0); MCHC 34.7 g/dL (32.0-37.0); MCV 88.5 FL (80.0-97.0); Mean Platelet Volume 10.3 FL (9.5-12.2); Monocytes # (A) 0.54 X 10*3/uL (0.20-1.00); Monocytes % (A) 10.1 %; NRBC Per 100 WBC 0 X 10*3/uL (0.00-0.01); Neutrophils # (A) 3.08 X 10*3/uL (1.80-7.70); Neutrophils % (A) 57.5 %; Platelet Count 225 X 10*3/uL (140-440); RBC 4.79 X 10*6/uL (4.10-5.20); RDW 12.6 % (11.5-14.5); WBC 5.35 X 10*3/uL (4.50-10.00)
[2023-09-28 15:52] LABS: ALT 54 U/L (8-44); AST 28 U/L (13-35); Albumin 4.8 g/dL (3.8-4.9); Albumin/Globulin Ratio 1.92 Ratio (1.60-3.17); Alkaline Phosphatase 98 U/L (41-126); BUN/Creat Ratio 35.14 Ratio (12.00-20.00); Blood Urea Nitrogen 24.6 mg/dL (9.0-27.0); Calcium 9.8 mg/dL (8.7-10.3); Carbon Dioxide 25.8 mmol/L (21.6-31.8); Chloride 104 mmol/L (96-109); Globulin 2.5 g/dL (1.6-3.3); Glucose 112 mg/dL (70-110); Potassium 4.7 mmol/L (3.5-5.5); Sodium 140 mmol/L (135-145); Total Bilirubin 0.8 mg/dL (0.3-1.2); Total Protein 7.3 g/dL (6.2-8.2)
== END | disposition home or self-care (01) ==
LOC: LABWHC1 12:43
PROVIDERS: ATTEND Internal Medicine Gastroenterology
DX: R74.8 Abnormal levels of other serum enzymes (principal)
CPT/HCPCS: 36415; 80053; 82103; 82104; 85025

== ENCOUNTER → 2023-10-26 | Outpatient (CLI) | payer MEDICAID, BC ==
--- NOTE | 2023-10-28 10:08 | MM ---
Reason for Exam: Screening (asymptomatic). Last mammogram was performed 2 year(s) and 1 month(s) ago. Patient History: Menarche at age 14. Patient has no children. Postmenopausal. Hormonal Contraceptives for 15 years from age 27 until age 42. Maternal grandmother had breast cancer, age 60. Risk Values: Marlin 5 year model risk: 1.4%. NCI Lifetime model risk: 8.9%. Prior Study Comparison: 06/26/2020 Bilateral Screening Mammogram, [facility]. 07/08/2020 Left Diagnostic Mammogram, [facility]. 09/16/2021 Bilateral Screening Mammogram, [facility]. Tissue Density: The breasts are heterogeneously dense, which may obscure small masses. Findings: Analyzed By CAD. There is no suspicious group of microcalcifications or new suspicious mass in either breast. Overall Assessment: Negative, BI-RAD 1 Management: Screening Mammogram of both breasts in 1 year. . Patient should continue monthly self-breast exams. A clinical breast exam by your physician is recommended on an annual basis. This exam should not preclude additional follow-up of suspicious palpable abnormalities. Note on Marlin scores and lifetime risk: 1. A Marlin score greater than 3% is considered moderate risk. If this is the case, consider specialist referral to assess eligibility for a risk reducing agent. 2. If overall lifetime risk for the development of breast cancer is 20% or higher, the patient may qualify for future screening with alternating mammogram and breast MRI. Electronically signed and approved by: Brandin Queen M.D. Radiologis
== END | disposition home or self-care (01) ==
LOC: RADMAMWWP 14:03
PROVIDERS: ATTEND Family Medicine
DX: Z12.31 Encounter for screening mammogram for malignant neoplasm of breast (principal); Z78.0 Asymptomatic menopausal state; Z80.3 Family history of malignant neoplasm of breast
CPT/HCPCS: 77063; 77067

== ENCOUNTER → 2024-03-07 | Outpatient (CLI) | payer MEDICAID, BC ==
--- NOTE | 2024-03-08 08:51 | US ---
EXAMINATION TYPE: US pelvis complete transvag DATE OF EXAM: 03/07/2024 COMPARISON: CT abdomen and pelvis 12/06/2022 CLINICAL INDICATION: Female, 59 years old with history of R10.2 PELVIC AND PERINEAL PAIN; Generalized pelvic cramping TECHNIQUE: Transvaginal (TV) and Transabdominal (TA) . Transabdominal grayscale, color Doppler and spectral Doppler sonographic images of the pelvis were acquired. 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 Uterus: Anteverted Left JERAD hypoechoic vascular lesion = 3.3 x 3.7 x 3.0 cm. Most consistent w ith an intramural fibroid. 2. Endometrium: wnl as visualized 3. Right Ovary: wnl 4. Left Ovary: wnl 5. Bilateral Adnexa: no free fluid 6. Posterior cul-de-sac: No free fluid Cervix- trace fluid seen in cervical canal IMPRESSION: 1. Fibroid changes of the uterus. 2. Endometrium appears unremarkable. [facility], , 03/08/2024 8:49 AM
== END | disposition home or self-care (01) ==
LOC: RADUSWWP 15:23
PROVIDERS: ATTEND Family Medicine
CPT/HCPCS: 76830; 76856

== ENCOUNTER → 2024-03-14 | Outpatient (CLI) | payer MEDICAID, BC | END | disposition home or self-care (01) | LOC: RADECHMAIN 13:32 | PROVIDERS: ATTEND Internal Medicine Interventional Cardiology | DX: Z53.9 Procedure and treatment not carried out, unspecified reason (principal) ==

== ENCOUNTER → 2024-03-23 | Outpatient (CLI) | payer MEDICAID, BC ==
--- NOTE | 2024-03-25 14:58 | US ---
EXAMINATION TYPE: US abdomen complete DATE OF EXAM: 03/23/2024 COMPARISON: US 05/21/2023, CT 2022 CLINICAL INDICATION: Female, 59 years old with history of R10.9 Unspecified abdominal pain; Pain x 1. 5 months, hx kidney stones. TECHNIQUE: Grayscale and color Doppler imaging of the abdomen was performed. FINDINGS: EXAM MEASUREMENTS: Liver Length: 14.9 cm Gallbladder Wall: 0.18 cm CBD: 0.40 cm, color Doppler imaging was utilized to isolate the common bile duct for measurement. Spleen: 10.1 cm Right Kidney: 9.9 x 5.5 x 4.5 cm Left Kidney: 10.7 x 5.6 x 6.2 cm INSTRUMENTATION DESIGNER NOTES: Limited due to gas. Pancreas: Limited visibility, tail was obscured. Liver: *Heterogeneous, increased echogenicity, coarse in echotexture. Indistinct, hypoechoic area se en near the gallbladder= 2.9 x 1.2 x 1.8 cm. Gallbladder: Multiple folds seen. Question possible internal echoes seen within the neck? Evidence for sonographic Fields's sign: No CBD: Appears wnl Spleen: Slightly limited, appears wnl Right Kidney: *Hyperechoic focus seen upper pole= 0.5 x 0.5 x 0.3 cm. Echogenic focus upper pole r ight kidney with some shadowing likely a nonobstructing renal stone. Left Kidney: *Appearance of hydro. *Hyperechoic focus seen at mid= 0.9 x 0.7 x 0.4 cm. -Anechoic area seen medially= 1.2 x 1.2 x 1.0 cm. Upper IVC: Appears wnl Abd Aorta: Appears wnl Iliac arteries were obscured. IMPRESSION: 1. Cholelithiasis. 2. Nonobstructing upper pole right renal stone. Nonobstructing renal stone within the mid left kidney . 3. Small cortical renal cyst left kidney [facility], , 03/25/2024 2:55 PM
== END | disposition home or self-care (01) ==
LOC: RADUSWWP 07:30
PROVIDERS: ATTEND Family Medicine
DX: K80.20 Calculus of gallbladder without cholecystitis without obstruction (principal); N20.0 Calculus of kidney; N28.1 Cyst of kidney, acquired; Z87.442 Personal history of urinary calculi
CPT/HCPCS: 76700

== ENCOUNTER → 2024-04-24 | Outpatient (CLI) | payer MEDICAID, BC ==
[2024-04-24 15:48] LABS: Chloride 102 mmol/L (96-109); Glucose 123 mg/dL (70-110); Potassium 4.3 mmol/L (3.5-5.5); Sodium 139 mmol/L (135-145)
[2024-04-24 15:49] LABS: ALT 57 U/L (8-44); AST 32 U/L (13-35); Albumin 4.6 g/dL (3.8-4.9); Alkaline Phosphatase 92 U/L (41-126); Calcium 9.8 mg/dL (8.7-10.3); Carbon Dioxide 24.9 mmol/L (21.6-31.8); Globulin 2.3 g/dL (1.6-3.3); T4, Free (Free Thyroxine) 1.07 ng/dL (0.80-1.80); Total Bilirubin 0.9 mg/dL (0.3-1.2); Total Protein 6.9 g/dL (6.2-8.2)
[2024-04-24 16:02] LABS: Basophils # (A) 0.06 X 10*3/uL (0.00-0.10); Eosinophils # (A) 0.17 X 10*3/uL (0.04-0.35); Eosinophils % (A) 2.7 %; HCT 43.4 % (37.2-46.3); HGB 14.3 g/dL (12.0-15.0); Lymphocytes # (A) 2.23 X 10*3/uL (0.90-5.00); Lymphocytes % (A) 35.9 %; MCH 29.8 pg (27.0-32.0); MCHC 32.9 g/dL (32.0-37.0); MCV 90.4 FL (80.0-97.0); Mean Platelet Volume 10.9 FL (9.5-12.2); Monocytes # (A) 0.59 X 10*3/uL (0.20-1.00); Monocytes % (A) 9.5 %; NRBC Per 100 WBC 0 X 10*3/uL (0.00-0.01); Neutrophils # (A) 3.15 X 10*3/uL (1.80-7.70); Neutrophils % (A) 50.6 %; Platelet Count 243 X 10*3/uL (140-440); RDW 12.3 % (11.5-14.5); WBC 6.22 X 10*3/uL (4.50-10.00)
== END | disposition home or self-care (01) ==
LOC: LABWHC1 11:36
PROVIDERS: ATTEND Internal Medicine Gastroenterology
DX: E03.9 Hypothyroidism, unspecified (principal); R73.03 Prediabetes; R74.8 Abnormal levels of other serum enzymes
CPT/HCPCS: 36415; 80053; 83036; 84439; 84443; 85025

== ENCOUNTER → 2024-05-19 | Outpatient (CLI) | payer MEDICAID, BC ==
--- NOTE | 2024-05-19 15:34 | MR ---
INDICATION: Patient age:Female; 59 years old; Reason for study: M54.50, M47.816; [facility]. COMPARISONS: CT abdomen and pelvis 12/06/2022, MR C-spine/L spine 05/01/2019, lumbosacral spine radiog raph 03/29/2019. TECHNIQUE: Multi planar, multi sequence imaging was performed utilizing: T1-weighted, T2-weighted, a nd turbo inversion recovery imaging of the lumbar spine. The patient was not given contrast. FINDINGS: The lumbar vertebral bodies do have preserved heights. Minimal dextrocurvature lumbar spin e with apex at L3. Minimal grade 1 anterolisthesis of L3 on L4 without pars defects. The conus medull lazaro and the distal spinal cord do appear unremarkable with regards to their signal intensity and mor phology. Minimal multilevel disc desiccation. L1-L2: No significant disc pathology is identified. The spinal canal and neural foramen are patent. L2-L3: No significant disc pathology is identified. The spinal canal and neural foramen are patent. L3-L4: Grade 1 anterolisthesis with uncovering of the disc. Broad-based disc bulge without significa nt effacement of the anterior thecal sac. Bilateral facet arthropathy with mild bilateral neural fora sebastian stenosis. L4-L5: Minimal broad-based disc bulge without significant effacement of the anterior thecal sac. Bila teral facet arthropathy. Mild left and minimal right neuroforaminal stenosis. L5-S1: Small central disc protrusion with annular tear. Similar prior exam. No significant effacemen t of the anterior thecal sac. No neuroforaminal stenosis. Other significant findings: Dilated left renal pelvis. IMPRESSION: 1. Overall stable mild multilevel degenerative disc disease and facet arthropathy as described above from prior MR 05/01/2019. Continued small central disc protrusion at L5-S1 with annular tear. No sig nificant spinal canal stenosis. 2. Similar minimal grade 1 anterolisthesis of L3 on L4 with minimal dextrocurvature of the lumbar sp ine with apex at L3. 3. Dilated left renal pelvis. Consider further evaluation with renal ultrasound. [facility], , 05/19/2024 3:31 PM
== END | disposition home or self-care (01) ==
LOC: RADMRIMAIN 14:42
PROVIDERS: ATTEND Orthopaedic Surgery
DX: M47.816 Spondylosis without myelopathy or radiculopathy, lumbar region (principal); M51.360 Other intervertebral disc degeneration, lumbar region with discogenic back pain only; M43.16 Spondylolisthesis, lumbar region
CPT/HCPCS: 72148

== ENCOUNTER → 2024-08-18 | Day surgery (SDC) | payer MEDICAID, BC ==
[~2024-08-18] MED LIST: LACTATED RINGERS 1,000 ML IV SCH; LIDOCAINE 1% INJ 10MG/ML (20 ML MDV) ONE; PROPOFOL 10 MG/ML 20 ML VIAL IV ONE
[2024-08-18 09:53] VITALS: TEMP 98.3
[2024-08-18] MEDS: IV FLUID CONTINUATION 1,000 ML IV ONE ×2 (09:53→10:06)
[2024-08-18 09:57] LABS: Glucose,Whole Blood 118 mg/dL (70-110)
--- NOTE | 2024-08-18 10:28 | P.PCN ---
Date of Procedure: 08/18/24 Procedure(s) Performed: BRIEF HISTORY: Patient is a 59-year-old pleasant white female scheduled for an elective colonoscopy as a part of screening for prior history of colon polyps. Her last colonoscopy was 15 years ago. PROCEDURE PERFORMED: Colonoscopy. PREOPERATIVE DIAGNOSIS: Screening for colon cancer. IV sedation per Anesthesia. PROCEDURE: After informed consent was obtained, the patient, was brought into the endoscopy unit. IV sedation was administered by Anesthesia under continuous monitoring. Digital rectal examination was normal. Initially the Olympus CF-160 flexible video colonoscope was then inserted in the rectum, gradually advanced into the cecum without any difficulty. Careful examination was performed as the scope was gradually being withdrawn. Ileocecal valve and the appendiceal orifice were visualized and appeared normal. Prep was excellent. Mucosa of the cecum, ascending colon, transverse colon, descending colon, sigmoid colon, and rectum appeared normal. Retroflexion was performed in the rectum and no lesions were seen. The patient tolerated the procedure well. IMPRESSION: Normal-appearing colon from rectum to cecum with no evidence of colorectal neoplasia. RECOMMENDATIONS: Findings of this examination were discussed with the patient as well as her family. She was advised to have repeat screening colonoscopy in 10 years.. Anesthesia: GETA
[2024-08-18 10:47] VITALS: PULSE 73
[2024-08-18 10:53] VITALS: BP 117/73; RESP 14
== END ==
LOC: ORWHC2ENDO 09:21
PROVIDERS: ATTEND Internal Medicine Gastroenterology
DX: Z12.11 Encounter for screening for malignant neoplasm of colon (principal); I10 Essential (primary) hypertension; R73.03 Prediabetes; K76.0 Fatty (change of) liver, not elsewhere classified; Z79.899 Other long term (current) drug therapy; Z86.0100 Personal history of colon polyps, unspecified
CPT/HCPCS: 45378; J2003; J2704

== ENCOUNTER → 2024-09-27 | Outpatient (CLI) | payer MEDICAID, BC ==
[2024-09-27 10:32] LABS: Basophils # (A) 0.06 X 10*3/uL (0.00-0.10); Basophils % (A) 1.2 %; Eosinophils # (A) 0.15 X 10*3/uL (0.04-0.35); Eosinophils % (A) 2.9 %; HCT 44.1 % (37.2-46.3); HGB 15.2 g/dL (12.0-15.0); Lymphocytes # (A) 1.67 X 10*3/uL (0.90-5.00); Lymphocytes % (A) 32.1 %; MCH 30.3 pg (27.0-32.0); MCHC 34.5 g/dL (32.0-37.0); MCV 87.8 FL (80.0-97.0); Mean Platelet Volume 10.2 FL (9.5-12.2); Monocytes # (A) 0.52 X 10*3/uL (0.20-1.00); NRBC Per 100 WBC 0 X 10*3/uL (0.00-0.01); Neutrophils # (A) 2.78 X 10*3/uL (1.80-7.70); Neutrophils % (A) 53.4 %; Platelet Count 234 X 10*3/uL (140-440); RBC 5.02 X 10*6/uL (4.10-5.20); RDW 12.2 % (11.5-14.5)
[2024-09-27 10:54] LABS: ALT 60 U/L (8-44); AST 27 U/L (13-35); Albumin 4.5 g/dL (3.8-4.9); Albumin/Globulin Ratio 1.88 Ratio (1.60-3.17); Alkaline Phosphatase 83 U/L (41-126); Appearance,Urine Clear (Clear); BUN/Creat Ratio 32.71 Ratio (12.00-20.00); Bilirubin,Urine Negative (Negative); Blood Urea Nitrogen 22.9 mg/dL (9.0-27.0); Blood,Urine Negative (Negative); Calcium 9.4 mg/dL (8.7-10.3); Carbon Dioxide 22.4 mmol/L (21.6-31.8); Chloride 106 mmol/L (96-109); Chol/HDL Ratio 2.97 Ratio; Color,Urine Yellow (Yellow); Globulin 2.4 g/dL (1.6-3.3); Glucose 124 mg/dL (70-110); Ketones,Urine Negative (Negative); LDL Cholesterol,Calculated 110.7 mg/dL (0.0-131.0); Nitrite,Urine Negative (Negative); PH, Urine 5.5; Potassium 4.6 mmol/L (3.5-5.5); Sodium 139 mmol/L (135-145); Total Bilirubin 1.2 mg/dL (0.3-1.2); Total Protein 6.9 g/dL (6.2-8.2); Urobilinogen,Urine 0.2 E.U./DL; VLDL Calculation 18.62 mg/dL (5.00-40.00)
[2024-09-27 11:10] LABS: Bacteria,Urine 3+ (None Seen); Calcium Oxalate Crystals,Urine Present (None Seen)
== END | disposition home or self-care (01) ==
LOC: LABWHC1 06:57
PROVIDERS: ATTEND Internal Medicine Gastroenterology
DX: Z00.00 Encounter for general adult medical examination without abnormal findings (principal); I10 Essential (primary) hypertension
CPT/HCPCS: 36415; 80053; 80061; 81001; 83036; 83525; 84443; 85025